=== PATIENT | female | born 1955 | race Caucasian/White ===

== ENCOUNTER → 2020-09-25 | Day surgery (SDC) | payer MEDICARE ==
[~2020-09-25] MED LIST: ALEVE220 M1 PO; BETAMETHASONE D0.053 TP; NORCO 325 MG-51 TAB PO; PERCOCET 325 MG1 TA2 PO
== END | disposition home or self-care (01) ==
LOC: MSO 11:47
DX: H25.811 Combined forms of age-related cataract, right eye (principal); F17.210 Nicotine dependence, cigarettes, uncomplicated; Z79.82 Long term (current) use of aspirin
CPT/HCPCS: 00142; J0171; J2250; V2632

== ENCOUNTER → 2020-10-23 | Day surgery (SDC) | payer MEDICARE | LOC: MSO 07:31 | DX: H25.812 Combined forms of age-related cataract, left eye (principal); F17.210 Nicotine dependence, cigarettes, uncomplicated; Z79.82 Long term (current) use of aspirin; Z79.899 Other long term (current) drug therapy | CPT/HCPCS: 00142; J0171; J2250; V2632 ==

== ENCOUNTER → 2021-10-27 | Outpatient (CLI) | payer MEDICARE, OTHER | LOC: RAD 10:10 | DX: R07.89 Other chest pain (principal) ==

== ENCOUNTER → 2022-01-07 | Outpatient (CLI) | payer MEDICARE, OTHER ==
[2022-01-07 16:16] LABS: BASO # 0.04 K/mm3 (0.02-0.10); EOS # 0.17 K/mm3 (0.04-0.40); EOS % 2.2 % (1.0-5.0); LYMPH# 2.61 K/mm3 (1.50-4.00); MEAN CELL VOLUME 89 fl (78-100); MEAN CORPUSCULAR HEMOGLOBIN 30 pg (27-31); MEAN CORPUSCULAR HGB CONC 34 g/dL (33-37); MEAN PLATELET VOLUME 9.8 fl (7.4-10.4); MONO # 0.52 K/mm3 (0.20-0.80); NEU # 4.37 K/mm3 (1.40-6.50); PLATELET COUNT 231 K/mm3 (130-400); RED BLOOD COUNT 5.29 M/mm3 (4.10-5.30); RED CELL DISTRIBUTION WIDTH 12.7 % (11.5-14.5); WHITE BLOOD COUNT 7.7 K/mm3 (4.8-10.8)
[2022-01-07 16:48] LABS: POTASSIUM 3.9 mmol/L (3.5-5.1)
[2022-01-07 16:49] LABS: CALCIUM 9.4 mg/dL (8.3-10.5)
[2022-01-07 16:50] LABS: ALBUMIN 4.5 g/dL (3.4-4.8)
[2022-01-07 16:52] LABS: TOTAL PROTEIN 7.7 g/dL (6.2-8.1)
[2022-01-07 16:53] LABS: TOTAL BILIRUBIN 0.3 mg/dL (0.2-1.2)
== END ==
LOC: LAB 15:53
PROVIDERS: Physician Assistant
DX: Z00.00 Encounter for general adult medical examination without abnormal findings (principal); Z13.1 Encounter for screening for diabetes mellitus; Z13.220 Encounter for screening for lipoid disorders; Z13.29 Encounter for screening for other suspected endocrine disorder; Z76.89 Persons encountering health services in other specified circumstances